=== PATIENT | female | born 1975 | race Caucasian/White ===

== ENCOUNTER 2020-02-09 13:30 | Observation (INO) ==
--- NOTE | 2020-02-09 14:28 | DR.EXTPAIN ---
HPI Time seen Time Seen by Provider: 02/09/20 14:20 PCP Primary Care Physician: fabrice riggs HPI Comment HPI Comment: PATIENT IS 44YR OLD FEMALE IN ER WITH NAUSEA, ABDOMINAL PAIN AND WEIGHT LOSS FOR 3 WEEKS.PATIENT IS WEAK AND DRAINED OF ENERGY. NO FEVER. HAVE ANOREXIA, THOUGHT OF FOOD NAUSEATE HER. NO FEVER OR DYSURIA. PAIN IS 7/10, DIFFUSED AND RADIATES TO THE BACK. Complaint/Symptoms Chief Complaint Doctor Comments: ABDOMINAL PAIN TIMES 3 WEEKS. Chief Complaint:: pt stated she has been nauseated, loss of weight, blacking out and weakness for over 3 weeks. pt stated her doctor in [place] told her to come to [place]. stated she stated she thinks something is going on with her abd. 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, Hysterectomy and Ortho Surgery Family History History of Family Medical Conditions: Yes Family Medical History: Diabetes Mellitus, [place], Coronary Artery Disease, Heart Failure and Hypertension Social History Does patient currently use any type of tobacco product: No Have you used tobacco products in the last 12 months: No Type of Tobacco Use: None Does any household member use tobacco: No Alcohol Use: None Do you use any recreational Drugs:: No Lives With: Family Lives Where: Home Infectious screening In the last 2 months have you had wt loss of >10#?: NO Have you had fever, night sweats or hemotysis?: No Have you traveled outside the country in the last 6 months?: No Isolation: Standard ROS Review of Systems Constitutional: No Symptoms Reported, Weakness and Fatigue; negative Fever Eyes: No Symptoms Reported and See HPI; negative Blurred Vision and Diplopia ENTM: No Symptoms Reported and See HPI; negative Ear Pain, Nose Pain, Nose Discharge and Throat Pain Respiratoy: No Symptoms Reported and See HPI; negative Moist Cough, Short of Breath and Wheezing Cardiovascular: No Symptoms Reported and See HPI; negative Chest Pain, Edema and Palpitations Gastrointestinal/Abdominal: See HPI, Abdominal Pain and Nausea Genitourinary: No Symptoms Reported and See HPI; negative Dysuria, Frequency and Hematuria Neurological: See HPI and Weakness; negative Headache and Dizziness Musculoskeletal: No Symptoms Reported and See HPI; negative Muscle Pain Integumentary: No Symptoms Reported and See HPI; negative Change in Color, Rash and Juandice Hematologic/Lymphatic: No Symptoms Reported and See HPI; negative Easy Bruising and Swollen Glands Endocrine: See HPI and Decreased Appetite; negative Increased Thirst and Increased Urine Psychiatric: No Symptoms Reported and See HPI All Other Systems: Reviewed and Negative PE Vital Signs Vitals: Temperature 98.8 F Pulse Rate 83 Respiratory Rate 18 Blood Pressure [Left Arm] 122/75 Blood Pressure 122/75 O2 Sat by Pulse Oximetry 95 General Limitations: No Limitations General Appearance: Alert and In No Apparent Distress Head Head Exam: Normal Inspection and Atraumatic Eyes Eye exam: Normal Appearance and PERRL; negative Scleral Icterus and Conjunctival Injection ENT ENT Exam: Normal Exam, Normal Oropharynx, Normal External Ear Exam and TM's Normal Bilaterally Neck Neck Exam: Normal Inspection and Trachea Midline; negative Tenderness and Lymphadenopathy Chest Chest Inspection: Normal Inspection and Symmetric Chest Wall Rise; negative Tenderness Respiratory Respiratory Exam: Normal Lung Sounds Bilat; negative Accessory Muscle Use, Chest Wall Tenderness and Respiratory Distress Respiratory Exam: Bilateral: Clear to Auscultation Cardiovascular Cardiovascular Exam: Regular Rate, Normal Rhythm and Normal Heart Sounds; negative Systolic Murmur and Diastolic Murmur Abdominal Exam Abdominal Exam: Normal Bowel Sounds, Soft and Tenderness Abdominal Tenderness: Diffuse and Moderate Extremities Extremities Exam: Normal Inspection Back Back Exam: Normal Inspection; negative (R) CVA Tenderness and (L) CVA Tenderness Neurological Neurological Exam: Alert, Oriented X3 and CN II-XII Intact; negative Motor Sensory Deficit Psychiatric Psychiatric Exam: Normal Affect and Normal Mood Skin Skin Exam: Warm, Dry, Intact and Normal Color MDM Differential Diagnosis Differential Diagnosis: Other (ABDOMIAL PAIN, BOWEL OBSTRUCTION, PACREATITIS, CHOLECYSTITIS, CHOLELITHISAIS, DEHYDRATION, ANOREXIA.) COURSE Treatment Treatment: SEE ORDERS. Consultation Consultation Comments: SURGICAL CONSULT, DR. ORTEGA. HE IS IN ER EVALUATING PAT IENT. HE WILL ADMIT PATIENT. Education/Counseling Education/Counseling: Patient Educated On: Diagnosis ROR Labs Reviewed Laboratory Results Reviewed?: Yes Result Diagrams: 02/10/20 04:36 02/10/20 04:36 Laboratory: WBC 5.7 X10^3/uL (3.6-10.0) 02/09/20 14:40 RBC 4.69 X10^6/uL (3.5-5.4) 02/09/20 14:40 Hgb 14.0 g/dL (12.0-16.0) 02/09/20 14:40 Hct 40.6 % (36.0-47.0) 02/09/20 14:40 MCV 86.6 fL (80.0-100.0) 02/09/20 14:40 MCH 29.9 pg (27.0-34.0) 02/09/20 14:40 MCHC 34.6 g/dL (33.0-35.0) 02/09/20 14:40 RDW 11.9 % (11.6-16.5) 02/09/20 14:40 Plt Count 232 X10^3/uL (150.0-450.0) 02/09/20 14:40 MPV 9.3 fL (7.4-11.0) 02/09/20 14:40 Neut % (Auto) 62.4 % (42.0-75.0) 02/09/20 14:40 Lymph % (Auto) 27.2 % (21.0-51.0) 02/09/20 14:40 [place] % (Auto) 9.7 % (0.0-13.0) 02/09/20 14:40 Eos % (Auto) 0.4 % (0.9-2.9) L 02/09/20:40 Baso % (Auto) 0.3 % (0.2-1.0) 02/09/20 14:40 Neut # (Auto) 3.6 x10^3/uL (2.2-4.8) 02/09/20 14:40 Lymph # (Auto) 1.6 X10^3/uL (1.3-2.9) 02/09/20 14:40 [place] # (Auto) 0.6 x10^3/uL (0.3-0.8) 02/09/20 14:40 Eos # (Auto) 0.0 x10^3/uL (0.0-0.2) 02/09/20 14:40 Baso # (Auto) 0.0 X10^3/uL (0.0-0.1) 02/09/20 14:40 Absolute Nucleated RBC 0.0 /100WBC 02/09/20 14:40 Sodium 141 mmol/L (136-145) 02/09/20 14:40 Corrected Sodium TNP 02/09/20 14:40 Potassium 3.0 mmol/L (3.5-5.1) L* 02/09/20 14:40 Chloride 100 mmol/L (98-107) 02/09/20 14:40 Carbon Dioxide 33.1 mmol/L (21-32) H 02/09/20 14:40 BUN 13 mg/dL (7-18) 02/09/20 14:40 Creatinine 1.02 mg/dL (0.55-1.02) 02/09/20 14:40 Est GFR (MDRD) Af Amer > 60 (>60) 02/09/20 14:40 Est GFR (MDRD) Non-Af > 60 (>60) 02/09/20 14:40 Glucose 87 mg/dL (65-99) 02/09/20 14:40 Calcium 9.0 mg/dL (8.5-10.1) 02/09/20 14:40 Corrected Calcium TNP 02/09/20 14:40 Magnesium 2.0 mg/dL (1.7-2.9) 02/09/20 14:40 Total Bilirubin 0.40 mg/dL (0.2-1.0) 02/09/20 14:40 AST 15 Units/L (15-37) 02/09/20 14:40 ALT 23 Units/L (12-78) 02/09/20 14:40 Alkaline Phosphatase 41 Units/L (46-116) L 02/09/20 14:40 Total Protein 7.7 g/dL (6.4-8.2) 02/09/20 14:40 Albumin 3.8 g/dL (3.4-5.0) 02/09/20 14:40 Globulin 3.9 g/dL (2.5-4.5) 02/09/20 14:40 Albumin/Globulin Ratio 1.0 Ratio (1.1-2.1) L 02/09/20 14:40 Amylase 36 Units/L (25-115) 02/09/20 14:40 Lipase 126 Units/L (73-393) 02/09/20 14:40 XRAY XRAY Interpreted by: Radiologist (REPORT NOTED AND DISCUSSED WITH PATIENT) Opioid Opioid Risk Tool Age (Eriberto box if 16-45): No Total: 0 Total Score Risk Category: Low Risk Copyright: Fahad HILL predicting aberrant behaviors Diagnosis Discharge Problem: Hypokalemia, Acute dehydration, Anorexia Abdominal pain Qualifiers: Abdominal location: generalized Qualified Code(s): R10.84 - Generalized abdominal pain Cholelithiases Qualifiers: Cholelithiasis location: gallbladder Cholecystitis presence: without cholecystitis Biliary obstruction: without biliary obstruction Qualified Code(s): K80.20 - Calculus of gallbladder without cholecystitis without obstruction Instructions Instructions: Acetaminophen; Hydrocodone tablets or capsules Laparoscopic Cholecystectomy, Care After Pain Medicine Instructions, [id number] Forms: Excuse From Work or School Excuse From Work Precautions for COVID19 Patient Portal Social Distancing
[2020-02-09] MEDS ORDERED: ZOFRAN INJ 4 MG VIAL IVP ONE (14:32)
[2020-02-09] MEDS ORDERED: ZOFRAN INJ 4 MG VIAL ONE (14:34)
[2020-02-09 14:51] LABS: BASOPHILS % (AUTO) 0.3 % (0.2-1.0); EOSINOPHILS % (AUTO) 0.4 % (0.9-2.9); HEMATOCRIT 40.6 % (36.0-47.0); LYMPHOCYTES # (AUTO) 1.6 X10^3/uL (1.3-2.9); LYMPHOCYTES % (AUTO) 27.2 % (21.0-51.0); MEAN CORPUSCULAR HEMOGLOBIN 29.9 pg (27.0-34.0); MEAN CORPUSCULAR HGB CONC 34.6 g/dL (33.0-35.0); MEAN CORPUSCULAR VOLUME 86.6 fL (80.0-100.0); MEAN PLATELET VOLUME 9.3 fL (7.4-11.0); MONOCYTES # (AUTO) 0.6 x10^3/uL (0.3-0.8); MONOCYTES % (AUTO) 9.7 % (0.0-13.0); NEUTROPHILS # (AUTO) 3.6 x10^3/uL (2.2-4.8); NEUTROPHILS % (AUTO) 62.4 % (42.0-75.0); PLATELET COUNT 232 X10^3/uL (150.0-450.0); RED BLOOD COUNT 4.69 X10^6/uL (3.5-5.4); RED CELL DISTRIBUTION WIDTH 11.9 % (11.6-16.5); WHITE BLOOD COUNT 5.7 X10^3/uL (3.6-10.0)
[2020-02-09 14:55] LABS: BLOOD UREA NITROGEN 13 mg/dL (7-18); CARBON DIOXIDE 33.1 mmol/L (21-32); CHLORIDE 100 mmol/L (98-107); CREATININE 1.02 mg/dL (0.55-1.02); SODIUM 141 mmol/L (136-145); eGFR NON BLACK RACES > 60 (>60)
[2020-02-09 15:00] LABS: ALANINE AMINOTRANSFERASE 23 Units/L (12-78); ALBUMIN 3.8 g/dL (3.4-5.0); ALKALINE PHOSPHATASE 41 Units/L (46-116); AMYLASE 36 Units/L (25-115); ASPARTATE AMINO TRANSFERASE 15 Units/L (15-37); LIPASE 126 Units/L (73-393); TOTAL PROTEIN 7.7 g/dL (6.4-8.2)
[2020-02-09] MEDS ORDERED: K-LYTE EFFERVESCENT ONE (17:33)
--- NOTE | 2020-02-09 17:36 | CT ---
HISTORY:Abdominal pain, nauseaStudy: CT abdomen and pelvis with contrastComparison:NoneTechnique: Multiple axial images of the abdomen and pelvis were obtained with IV contrast. Oral contrast was administered. Dose reduction techniques including Automated Exposure Control (AEC) and adjustment of mA and kV were utilized.FINDINGS:The lung bases are clear. The liver, spleen, pancreas, and adrenal glands are unremarkable in their CT appearance. Cholelithiasis is noted. No biliary duct dilation.No renal calculi or obstructive uropathy.No free intraperitoneal air . No evidence of intestinal obstruction or inflammation. Oral contrast reaches the descending colon. The appendix appears normal. No free fluid or abscess identified.The soft tissues and osseous structures are intact . The vascular structures are unremarkable . No pathologically enlarged lymph nodes are identified.Normal urinary bladder.IMPRESSION ABDOMEN/PELVIS:1. No acute abnormality identified.2. Cholelithiasis.Electronically signed by: MENDOZA WORTHINGTON (Feb 09, 2020 17:34:22)
[2020-02-09] MEDS ORDERED: HEPARIN SODIUM IN D5W 25,000 UNITS/500 ML BAG IV PRN (18:22)
[2020-02-09] MEDS ORDERED: ATIVAN TAB 1 MG PO PRN (19:28)
[2020-02-09] MEDS: NS 1000 ML 1,000 ML IV SCH (20:21)
[2020-02-09] MEDS ORDERED: BENADRYL CAP/TAB 25 MG PO SCH (21:00)
[2020-02-09] MEDS: ZOFRAN INJ 4 MG VIAL IVP PRN (22:14)
--- NOTE | 2020-02-10 02:35 | RAD ---
Chest AP portableIndication: Free have radiograph for gallbladder surgery.COMPARISONCT from the previous dayFINDINGSThere is no pneumothorax or effusion. Heart size is normal. There is no consolidation.IMPRESSIONNo acute chest process.Electronically signed by: JAROD ROBERTS (Feb 10, 2020 02:34:34)
[2020-02-10 05:10] LABS: BASOPHILS % (AUTO) 0.3 % (0.2-1.0); EOSINOPHILS # (AUTO) 0.1 x10^3/uL (0.0-0.2); EOSINOPHILS % (AUTO) 0.9 % (0.9-2.9); HEMATOCRIT 38.3 % (36.0-47.0); HEMOGLOBIN 13.2 g/dL (12.0-16.0); LYMPHOCYTES % (AUTO) 31.8 % (21.0-51.0); MEAN CORPUSCULAR HEMOGLOBIN 29.9 pg (27.0-34.0); MEAN CORPUSCULAR HGB CONC 34.4 g/dL (33.0-35.0); MEAN PLATELET VOLUME 9.7 fL (7.4-11.0); MONOCYTES # (AUTO) 0.7 x10^3/uL (0.3-0.8); MONOCYTES % (AUTO) 10.5 % (0.0-13.0); NEUTROPHILS # (AUTO) 3.6 x10^3/uL (2.2-4.8); NEUTROPHILS % (AUTO) 56.5 % (42.0-75.0); PLATELET COUNT 223 X10^3/uL (150.0-450.0); RED BLOOD COUNT 4.41 X10^6/uL (3.5-5.4); RED CELL DISTRIBUTION WIDTH 11.4 % (11.6-16.5); WHITE BLOOD COUNT 6.4 X10^3/uL (3.6-10.0)
[2020-02-10 05:17] LABS: ALANINE AMINOTRANSFERASE 63 Units/L (12-78); ALBUMIN 3.3 g/dL (3.4-5.0); ALKALINE PHOSPHATASE 34 Units/L (46-116); ASPARTATE AMINO TRANSFERASE 53 Units/L (15-37); BLOOD UREA NITROGEN 9 mg/dL (7-18); CALCIUM 8.4 mg/dL (8.5-10.1); CARBON DIOXIDE 29.7 mmol/L (21-32); CHLORIDE 102 mmol/L (98-107); CREATININE 0.86 mg/dL (0.55-1.02); SODIUM 141 mmol/L (136-145); TOTAL PROTEIN 6.7 g/dL (6.4-8.2); eGFR NON BLACK RACES > 60 (>60)
[2020-02-10] MEDS: NS 1000 ML 1,000 ML IV SCH ×2 (05:35→16:01)
[2020-02-10] MEDS ORDERED: K-RIDER 10 MEQ/NS 100 ML 10 MEQ/100 ML BAG IV ONE (06:12)
[2020-02-10] MEDS ORDERED: HYDROCHLOROTHIAZIDE 12.5 MG PO SCH (06:30)
[2020-02-10] MEDS ORDERED: FLONASE NASAL SPRAY ENOSTRIL SCH (09:00)
[2020-02-10] MEDS ORDERED: HYDROCHLOROTHIAZIDE 12.5 MG CAP PO SCH (09:00)
[2020-02-10 09:20] VITALS: BMI 23.5
[2020-02-10] MEDS ORDERED: NEOSTIGMINE INJ ONE (09:28)
[2020-02-10] MEDS ORDERED: ZOFRAN INJ 4 MG VIAL ONE (09:28)
[2020-02-10] MEDS ORDERED: DIPRIVAN VIAL ONE (09:28)
[2020-02-10] MEDS ORDERED: EPHEDRINE SULFATE INJ ONE (09:28)
[2020-02-10] MEDS ORDERED: NORCURON INJ 10 MG VIAL ONE (09:28)
[2020-02-10] MEDS ORDERED: LTA KIT LIDOCAINE 4% ONE (09:28)
[2020-02-10] MEDS ORDERED: ROBINUL ONE (09:28)
[2020-02-10] MEDS ORDERED: SUPRANE ONE (09:28)
[2020-02-10] MEDS ORDERED: QUELICIN (OR ANECTINE) ONE (09:28)
[2020-02-10] MEDS ORDERED: FENTANYL INJ 250 mcg ONE (10:03)
[2020-02-10] MEDS ORDERED: DECADRON INJ ONE (10:04)
[2020-02-10] MEDS: ZOFRAN INJ 4 MG VIAL IVP PRN (10:16)
[2020-02-10] MEDS ORDERED: POTASSIUM CHL 40 MEQ/NS 0.45% 500 ML IV PRN (10:20)
[2020-02-10] MEDS ORDERED: KLOR-CON PO PRN (10:20)
[2020-02-10] MEDS ORDERED: K-DUR TAB 20 MEQ PO PRN (10:20)
[2020-02-10] MEDS ORDERED: MICRO K EXTEN CAP 10 MEQ PO PRN (10:20)
[2020-02-10] MEDS ORDERED: POTASSIUM CHL 60 MEQ/NS 0.45% 500 ML IV PRN (10:20)
[2020-02-10] MEDS ORDERED: POTASSIUM CHLORIDE LIQ 20 MEQ UDC PO PRN (10:20)
[2020-02-10] MEDS ORDERED: K-RIDER 10 MEQ/NS 100 ML 10 MEQ/100 ML BAG IV PRN (10:20)
[2020-02-10] MEDS ORDERED: LR 1000 ML IV 1,000 ML IV ONE (10:40)
[2020-02-10] MEDS ORDERED: ANCEF VIAL 1 GRAM ONE (10:41)
[2020-02-10] MEDS ORDERED: BACTROBAN TOPICAL OINT ONE (11:04)
[2020-02-10] MEDS ORDERED: DILAUDID INJ IVP PRN ×2 (12:05→12:21)
[2020-02-10] MEDS ORDERED: REGLAN INJ 10 MG VIAL IVP PRN (12:05)
[2020-02-10] MEDS ORDERED: PHENERGAN INJ 25 MG IM PRN (12:05)
[2020-02-10] MEDS ORDERED: ZOFRAN INJ 4 MG VIAL IVP PRN (12:05)
[2020-02-10] MEDS ORDERED: BENADRYL INJ 50 MG VIAL IVP PRN (12:05)
--- NOTE | 2020-02-10 12:10 | OR.IMMED ---
Immediate Post-Op Note - Immediate Post-Op Note Pre-Op Diagnosis: calculus cholecystitis Post-Op Diagnosis: acute calculus cholecystitis. abdominal and pelvic adhesions . Surgeon/Acid Dipper: Tamra Specimens Removed: GB with contents . Drains: NONE Complications: none Condition: Stable (on liquid diet . , to follow in 10 days .)
[2020-02-10 14:34] VITALS: BP 100/61
[2020-02-10] MEDS ORDERED: KLOR-CON PO ONE (17:33)
== END 2020-02-10 15:55 | disposition home or self-care (01) ==
LOC: ER 13:30 → MED/SURG 13:30
PROVIDERS: ADMIT Surgery; ATTEND Surgery
DX: R10.84 Generalized abdominal pain; K82.8 Other specified diseases of gallbladder; E87.6 Hypokalemia; R63.0 Anorexia; K80.00 Calculus of gallbladder with acute cholecystitis without obstruction
CPT/HCPCS: 36415; 71010; 71045; 74177; 80053; 82150; 83690; 83735; 84132; 85025; 93005; 96360; 96361; 96365; 96374; 99284; A4216; A4222; G0378; J0330; J0690; J1100; J2405; J2704; J2710; J3010; J3480; J3490; J7030; J7120; J8499

== ENCOUNTER 2021-03-26 20:19 | Observation (INO) ==
[2021-03-26 20:28] VITALS: BMI 24.3
--- NOTE | 2021-03-26 22:25 | ED.ABDFE ---
HPI Time Seen Time Seen by Provider: 03/26/21 22:24 PCP Primary Care Physician: HPI Comment HPI Comment: PATIENT IS 45YR OLD FEMALE WITH ABDOMINAL PAIN THAT IS GETTING WORSE. Complaint Doctors Chief Complaint Comments: ABDOMINAL PAIN WITH NAUSEA. Chief Complaint:: PT STATED THAT SHE HAS BEEN HAVING STOMACH PAIN AND NAUSEA THAT SEEM TO BE GETTING WORSE. COVID-19 Coronavirus risk:travel/contact w/high risk person: No Has patient experienced Coronavirus symptoms: No Reviewed Nurses Notes Review: Yes Source History Provided: Patient Mode of arrival Mode of Arrival: Ambulatory Timing Onset of Chief Complaint: 03/26/21 Came on: Suddenly Duration Since Onset: Constant Duration: Days Severity Severity: Moderate Quality Quality: Sharp Context History of: None Modifying factors Worsening Factors: Movement Improving Factors: Nothing Associated signs and symptoms Associated Signs and Symptoms: Nausea PMH PMH Past Medical History: Yes Past Medical History: Anxiety Past Surgical History: Yes Surgical History: Cholecystectomy Past Surgical History Comment: ENDOMETREOSIS AND TUBLIGATION Family History History of Family Medical Conditions: Yes Family Medical History: Diabetes Mellitus, [place], Coronary Artery Disease, Heart Failure and Hypertension Social History Do you use any recreational Drugs:: No Lives With: Family Lives Where: Home Infectious screening In the last 2 months have you had wt loss of >10#?: NO Have you had fever, night sweats or hemotysis?: No Have you traveled outside the country in the last 6 months?: No Isolation: Standard ROS Review of Systems Constitutional: See HPI, Weakness and Fatigue; negative Fever Eyes: No Symptoms Reported ENTM: No Symptoms Reported, See HPI and Nose Pain; negative Nose Discharge and Nose Congestion Respiratoy: No Symptoms Reported and See HPI; negative Moist Cough, Short of Breath and Wheezing Cardiovascular: No Symptoms Reported and See HPI; negative Chest Pain and Edema Gastrointestinal/Abdominal: See HPI, Abdominal Pain and Nausea; negative Diarrhea and Vomiting Genitourinary: No Symptoms Reported and See HPI; negative Dysuria, Frequency and Hematuria Neurological: No Symptoms Reported, See HPI and Weakness; negative Headache and Dizziness Musculoskeletal: See HPI and Back Pain; negative Muscle Pain Integumentary: No Symptoms Reported, See HPI and Change in Color; negative Rash and Juandice Hematologic/Lymphatic: No Symptoms Reported and See HPI; negative Easy Bruising and Swollen Glands Endocrine: No Symptoms Reported and See HPI Psychiatric: No Symptoms Reported and See HPI All Other Systems: Reviewed and Negative PE Vital Signs Vitals: Temperature 97.9 F Pulse Rate 82 Respiratory Rate 18 Blood Pressure [Left Arm] 100/61 Blood Pressure 100/59 O2 Sat by Pulse Oximetry 99 General Limitations: No Limitations and Language Barrier General Appearance: Alert and In No Apparent Distress Head Head Exam: Normal Inspection Eyes Eye exam: Normal Appearance, PERRL and EOMI; negative Scleral Icterus and Conjunctival Injection ENT ENT Exam: Normal Exam, Normal Oropharynx, Normal External Ear Exam and TM's Normal Bilaterally Neck Neck Exam: Normal Inspection and Trachea Midline; negative Tenderness and Lymphadenopathy Chest Chest Inspection: Normal Inspection and Symmetric Chest Wall Rise; negative Tenderness Respiratory Respiratory Exam: Normal Lung Sounds Bilat; negative Accessory Muscle Use, Chest Wall Tenderness and Respiratory Distress Respiratory Exam: Bilateral: Clear to Auscultation Cardiovascular Cardiovascular Exam: Regular Rate, Normal Rhythm and Normal Heart Sounds; negative Systolic Murmur and Diastolic Murmur Abdominal Exam Abdominal Exam: Normal Inspection, Normal Bowel Sounds, Distention and Guarding Abdominal Tenderness: Diffuse and Moderate Rectal Rectal Exam: Deferred Back Back Exam: Normal Inspection; negative (R) CVA Tenderness and (L) CVA Tenderness Extremeties Extremities Exam: Normal Inspection and Normal Capillary Refill; negative Tenderness, Edema and Calf Tenderness External Exam: Female: Deferred : Speculum Exam (Female): Deferred : Bimanual Exam (female): Deferred Neurologic Neurological Exam: Alert, Oriented X3 and CN II-XII Intact; negative Motor Sensory Deficit Psychiatric Psychiatric Exam: Normal Affect and Normal Mood Skin Skin Exam: Warm, Dry and Intact MDM Differential Diagnosis Differential Diagnosis- Considerations may include:: Appendicitis, Bowel Obstruction, Cholcystitis, Cholelethiasis, Diverticular disease, Esophagitis, Gastritus/PUD, Gastroenteritis, Inflammatory BD, Ischemic Bowel, Urinary tract infection and Urolithiasis COURSE Treatment Treatment: SEE ORDERS. ZOSYN 3.375MG IVPB, NS 1L IV BOLUS THEN 125CC/HR. ZOFRAN 4MG IV IN ER. Consultation Consultation Comments: DISCUSSED PATIENT WITH DR. ORTEGA. HE WILL ADMIT PATIENT. Education/Counseling Education/Counseling: Patient Educated On: Diagnosis ROR Labs Reviewed Laboratory Results Reviewed?: Yes Result Diagrams: 03/26/21 23:25 03/26/21 23:25 Laboratory: WBC 13.1 X10^3/uL (3.6-10.0) H 05/30/21 23: RBC 4.66 X10^6/uL (3.5-5.4) 03/26/21 23:25 Hgb 13.9 g/dL (12.0-16.0) 03/26/21 23: Hct 41.3 % (36.0-47.0) 03/26/21 23: MCV 88.5 fL (80.0-100.0) 03/26/21: MCH 29.8 pg (27.0-34.0) 03/26/21: MCHC 33.7 g/dL (33.0-35.0) 03/26/21: RDW 12.3 % (11.6-16.5) 03/26/21: Plt Count 275 X10^3/uL (150.0-450.0) 03/26/21: MPV 8.8 fL (7.4-11.0) 03/26/21: Neut % (Auto) 86.0 % (42.0-75.0) H 03/26/21 23: Lymph % (Auto) 7.2 % (21.0-51.0) L 03/26/21: [place] % (Auto) 6.7 % (0.0-13.0) 03/26/21: Eos % (Auto) 0.0 % (0.9-2.9) L 03/26/21: Baso % (Auto) 0.1 % (0.2-1.0) L 03/26/21 23: Neut # (Auto) 11.3 x10^3/uL (2.2-4.8) H 03/26/21 23:25 Lymph # (Auto) 1.0 X10^3/uL (1.3-2.9) L 03/26/21 23: [place] # (Auto) 0.9 x10^3/uL (0.3-0.8) H 03/26/21 23:25 Eos # (Auto) 0.0 x10^3/uL (0.0-0.2) 03/26/21 23: Baso # (Auto) 0.0 X10^3/uL (0.0-0.1) 03/26/21 23:25 Absolute Nucleated RBC 0.0 /100WBC 03/26/21 23:25 Sodium 141 mmol/L (136-145) 03/26/21 23:25 Corrected Sodium 141 mmol/L (136-145) 03/26/21 23:25 Potassium 3.8 mmol/L (3.5-5.1) 03/26/21 23:25 Chloride 101 mmol/L (98-107) 03/26/21 23:25 Carbon Dioxide 32.6 mmol/L (21-32) H 03/26/21 23:25 BUN 9 mg/dL (7-18) 03/26/21 23:25 Creatinine 0.80 mg/dL (0.55-1.02) 03/26/21 23:25 Est GFR (MDRD) Af Amer > 60 (>60) 03/26/21 23:25 Est GFR (MDRD) Non-Af > 60 (>60) 03/26/21 23:25 Glucose 111 mg/dL (65-99) H 03/26/21 23:25 Calcium 9.3 mg/dL (8.5-10.1) 03/26/21 23:25 Corrected Calcium TNP 03/26/21 23:25 Total Bilirubin 0.40 mg/dL (0.2-1.0) 03/26/21 23:25 AST 11 Units/L (15-37) L 03/26/21 23:25 ALT 20 Units/L (12-78) 03/26/21 23:25 Alkaline Phosphatase 63 Units/L (46-116) 03/26/21 23:25 Total Protein 8.2 g/dL (6.4-8.2) 03/26/21 23:25 Albumin 3.9 g/dL (3.4-5.0) 03/26/21 23:25 Globulin 4.3 g/dL (2.5-4.5) 03/26/21 23:25 Albumin/Globulin Ratio 0.9 Ratio (1.1-2.1) L 03/26/21 23:25 Amylase 42 Units/L (25-115) 03/26/21 23:25 Lipase 87 Units/L (73-393) 03/26/21 23:25 Specimen Type Clean catch urine 03/26/21 23:45 Urine Color Yellow (YELLOW) 03/26/21 23:45 Urine Appearance Clear (CLEAR) 03/26/21 23:45 Urine pH 6.0 (5.0 - 8.0) 03/26/21 23:45 Ur Specific Protivin 1.020 (1.000-1.030) 03/26/21 23:45 Urine Protein Negative (NEGATIVE) 03/26/21 23:45 Urine Glucose (UA) Negative (NEGATIVE) 03/26/21 23:45 Urine Ketones 1+ (NEGATIVE) 03/26/21 23:45 Urine Occult Blood 2+ (NEGATIVE) 03/26/21 23:45 Urine Nitrite Negative (NEGATIVE) 03/26/21 23:45 Urine Bilirubin Negative (NEGATIVE) 03/26/21 23:45 Urine Urobilinogen Normal (NORMAL) 03/26/21 23:45 Ur Leukocyte Esterase 1+ (NEGATIVE) 03/26/21 23:45 Urine RBC 0-2 /HPF (0-3) 03/26/21 23:45 Urine WBC 0-2 /HPF (0-5) 03/26/21 23:45 Ur Squamous Epith Cells Few /HPF (NEGATIVE) 03/26/21 23:45 Urine Bacteria Trace /HPF (NEGATIVE) 03/26/21 23:45 Urine Mucus Many /HPF (NEGATIVE) 03/26/21 23:45 Ur Culture Indicated? No/not indicated 03/26/21 23:45 SARS CoV-2 RNA Rapid JOSE Negative (NEGATIVE) 03/27/21 02:50 XRAY XRAY Interpreted by: Radiologist (REPORT NOTED AND DISCUSSED WITH PATIENT.) and Self Opioid Opioid Risk Tool Age (Eriberto box if 16-45): No History of Preadolescent Sexual Abuse: No Total: 0 Total Score Risk Category: Low Risk Copyright: Fahad HILL predicting aberrant behaviors Diagnosis Discharge Problem: Acute appendicitis, Abdominal pain Instructions Forms: Precautions for COVID19 Patient Portal Social Distancing
[2021-03-26] MEDS ORDERED: ZOFRAN INJ 4 MG VIAL IVP ONE ×2 (23:15→23:40)
[2021-03-26] MEDS ORDERED: BENTYL I.M. INJ 10 MG IM ONE ×2 (23:15→23:23)
[2021-03-26] MEDS ORDERED: TORADOL 60 MG VIAL IM ONE (23:15)
[2021-03-26] MEDS ORDERED: TORADOL 30 MG VIAL ONE (23:23)
[2021-03-26] MEDS ORDERED: ZOFRAN INJ 4 MG VIAL ONE (23:23)
[2021-03-26 23:34] LABS: BASOPHILS % (AUTO) 0.1 % (0.2-1.0); HEMATOCRIT 41.3 % (36.0-47.0); HEMOGLOBIN 13.9 g/dL (12.0-16.0); LYMPHOCYTES % (AUTO) 7.2 % (21.0-51.0); MEAN CORPUSCULAR HEMOGLOBIN 29.8 pg (27.0-34.0); MEAN CORPUSCULAR HGB CONC 33.7 g/dL (33.0-35.0); MEAN CORPUSCULAR VOLUME 88.5 fL (80.0-100.0); MEAN PLATELET VOLUME 8.8 fL (7.4-11.0); MONOCYTES # (AUTO) 0.9 x10^3/uL (0.3-0.8); MONOCYTES % (AUTO) 6.7 % (0.0-13.0); NEUTROPHILS # (AUTO) 11.3 x10^3/uL (2.2-4.8); PLATELET COUNT 275 X10^3/uL (150.0-450.0); RED BLOOD COUNT 4.66 X10^6/uL (3.5-5.4); RED CELL DISTRIBUTION WIDTH 12.3 % (11.6-16.5); WHITE BLOOD COUNT 13.1 X10^3/uL (3.6-10.0)
[2021-03-26] MEDS ORDERED: TORADOL 30 MG VIAL IVP ONE (23:39)
[2021-03-26 23:49] LABS: ALANINE AMINOTRANSFERASE 20 Units/L (12-78); ALBUMIN 3.9 g/dL (3.4-5.0); ALKALINE PHOSPHATASE 63 Units/L (46-116); AMYLASE 42 Units/L (25-115); ASPARTATE AMINO TRANSFERASE 11 Units/L (15-37); BLOOD UREA NITROGEN 9 mg/dL (7-18); CALCIUM 9.3 mg/dL (8.5-10.1); CARBON DIOXIDE 32.6 mmol/L (21-32); CHLORIDE 101 mmol/L (98-107); COR NA(FOR HYPERGLY) 141 mmol/L (136-145); LIPASE 87 Units/L (73-393); SODIUM 141 mmol/L (136-145); TOTAL PROTEIN 8.2 g/dL (6.4-8.2); eGFR NON BLACK RACES > 60 (>60)
[2021-03-26 23:54] LABS: BILIRUBIN,URINE NEGATIVE (NEGATIVE); BLOOD/HEMOGLOBIN,URINE 2+ (NEGATIVE); GLUCOSE, URINE NEGATIVE (NEGATIVE); KETONES,URINE 1+ (NEGATIVE); LEUKOCYTE ESTERASE ,URINE 1+ (NEGATIVE); NITRITES,URINE NEGATIVE (NEGATIVE); PROTEIN,URINE NEGATIVE (NEGATIVE); UROBILINOGEN,URINE NORMAL (NORMAL)
[2021-03-27 00:03] LABS: APPEARANCE,URINE CLEAR (CLEAR); BACTERIA,URINE TRACE /HPF (NEGATIVE); COLOR,URINE YELLOW (YELLOW); MUCUS,URINE MANY /HPF (NEGATIVE); RBC,URINE 0-2 /HPF (0-3); SQUAMOUS EPITHELIAL CELL,UR FEW /HPF (NEGATIVE)
--- NOTE | 2021-03-27 02:27 | CT ---
HISTORYPT C/O ABD PAIN AND NAUSEASTUDYABDOMEN/PELVIS W/O [id number] axial images of the abdomen and pelvis were obtained from the lung bases to the pubic symphysis without the administration of IV contrast. Dose reduction techniques including Automated Exposure Control (AEC) and adjustment of mA and kV were utilized.FINDINGSThe visualized portions of the lung bases are unremarkable . The liver, spleen, pancreas, kidneys, and adrenal glands are unremarkable in their CT appearance. Post cholecystectomy changes.. No significant mesenteric lymphadenopathy or stranding can be observed. No free fluid or free air is seen within the abdomen. Enlarged appendix retrocecal in location measuring up to 10 mm in diameter. Periappendiceal stranding present. No abscess or free air. No bowel wall thickening or bowel dilatation is present. The colon is unremarkable. Specifically, there is no diverticulosis noted within the sigmoid colon. The urinary bladder is grossly unremarkable. The uterus is present. The bony structures are grossly intact.IMPRESSIONEnlarged appendix with periappendiceal stranding consistent with acute appendicitis.COMMUNICATIONS: These findings were discussed with Dr. Bai's nurse in the emergency Department at 2:21 a.m. 1Electronically signed by: Pedro Diez (March 27, 2021 02:24:45)
[2021-03-27] MEDS ORDERED: ZOSYN VIAL 3.375 GRAMS 3.375 G in NS 100 ML IV + SPIKE MINIBAG* 100 ML IV ONE (02:48)
[2021-03-27] MEDS ORDERED: ZOSYN VIAL 3.375 GRAMS IV ONE (02:52)
[2021-03-27] MEDS ORDERED: NS 100 ML IV + SPIKE MINIBAG* 100 ML IV ONE (02:52)
[2021-03-27] MEDS ORDERED: NS 1000 ML 1,000 ML ONE ×2 (02:52→09:35)
[2021-03-27] MEDS: NS 1000 ML 1,000 ML IV SCH ×4 (03:03→22:02)
[2021-03-27] MEDS ORDERED: ATIVAN TAB 0.5 MG PO ONE (05:14)
[2021-03-27] MEDS ORDERED: ATIVAN TAB 0.5 MG ONE (05:17)
[2021-03-27] MEDS ORDERED: BACTROBAN TOPICAL OINT ONE (08:33)
[2021-03-27] MEDS ORDERED: NS 100 ML IV 200 ML IV ONE (08:34)
[2021-03-27] MEDS ORDERED: ANCEF VIAL 1 GRAM ONE (08:34)
--- NOTE | 2021-03-27 09:22 | RAD ---
HISTORYPRE-OPSTUDYCHEST, 1 VIEWCOMPARISON02/10/20FINDINGSThe trachea is midline. The cardiac silhouette is unremarkable. Biapical pleural parenchymal scarring. The lungs are clear without focal infiltrate or effusion. The bony thorax is unremarkable.[ ]IMPRESSIONNo acute cardiopulmonary disease.Electronically signed by: MARY JANE BAGLEY (March 27, 2021 09:19:58)
[2021-03-27] MEDS ORDERED: DECADRON INJ ONE (09:23)
[2021-03-27] MEDS ORDERED: KETALAR ONE (09:23)
[2021-03-27] MEDS: DILAUDID INJ ONE ×2 (09:24→09:39)
[2021-03-27] MEDS ORDERED: FENTANYL INJ 100 mcg ONE (09:24)
[2021-03-27] MEDS ORDERED: ZEMURON 50 MG VIAL ONE (09:25)
[2021-03-27] MEDS ORDERED: OFIRMEV IV 1000 MG VIAL 1,000 MG/100 ML VIAL IV ONE (09:25)
[2021-03-27] MEDS ORDERED: PEPCID 20 MG IV PREMIX* 20 MG/50 ML BAG IV ONE (09:25)
[2021-03-27] MEDS ORDERED: XYLOCAINE 2 % (PLAIN) ONE (09:39)
[2021-03-27] MEDS ORDERED: ZOFRAN INJ 4 MG VIAL ONE (09:39)
[2021-03-27] MEDS ORDERED: VERSED ONE (09:39)
[2021-03-27] MEDS ORDERED: ROBINUL ONE (09:39)
[2021-03-27] MEDS ORDERED: ULTANE GAS IN ONE (09:39)
[2021-03-27] MEDS ORDERED: DIPRIVAN VIAL ONE (09:39)
[2021-03-27] MEDS ORDERED: TORADOL 30 MG VIAL ONE (09:39)
[2021-03-27] MEDS ORDERED: EPHEDRINE SULFATE INJ ONE (09:39)
[2021-03-27] MEDS ORDERED: BRIDION ONE (09:39)
[2021-03-27] MEDS ORDERED: BARHEMSYS INJ IVP PRN (11:03)
[2021-03-27] MEDS ORDERED: PHENERGAN INJ 25 MG IM PRN (11:03)
[2021-03-27] MEDS ORDERED: DILAUDID INJ IVP PRN ×2 (11:03→11:10)
[2021-03-27] MEDS ORDERED: BENADRYL INJ 50 MG VIAL IVP PRN (11:03)
[2021-03-27] MEDS ORDERED: ZOFRAN INJ 4 MG VIAL IVP PRN (11:45)
[2021-03-27] MEDS: ZOSYN VIAL 3.375 GRAMS 3.375 G in NS 100 ML IV + SPIKE MINIBAG* 100 ML IV SCH ×3 (11:49→22:01)
[2021-03-27] MEDS ORDERED: D5 1/2 NS 1000 ML 1,000 ML IV SCH (12:00)
[2021-03-28] MEDS: NS 1000 ML 1,000 ML IV SCH ×2 (03:13→10:25)
[2021-03-28] MEDS ORDERED: PEPCID 20 MG IV PREMIX* 20 MG/50 ML BAG IV SCH (04:00)
[2021-03-28] MEDS: ZOSYN VIAL 3.375 GRAMS 3.375 G in NS 100 ML IV + SPIKE MINIBAG* 100 ML IV SCH (05:32)
[2021-03-28 08:07] VITALS: BP 95/54
== END 2021-03-28 11:30 | disposition home or self-care (01) ==
LOC: MED/SURG 20:19 → ER 20:19 → MED/SURG 03-27 04:06
PROVIDERS: ADMIT Surgery; ATTEND Surgery
PROC: APPYLAP (ICD-10-PCS; 2021-03-27 09:45)
DX: K35.890 Other acute appendicitis without perforation or gangrene; Z20.822 Contact with and (suspected) exposure to COVID-19; R10.31 Right lower quadrant pain